=== PATIENT | male | born 1960 | race Caucasian/White ===

== ENCOUNTER → 2018-02-21 12:35 | Outpatient (CLI) | payer OTHER, SELFPAY ==
[2018-02-21 13:39] LABS: Absolute Lymphocyte Count 0.97 X10^3/ul (0.83-4.51); Absolute Neutrophil Count 2.2 X10^3/uL (2.0-7.7); Basophil# 0.03 X10^3/uL; Basophil% 0.8 % (0-1); Eosinophil# 0.03 X10^3/uL; Eosinophils% 0.8 % (0-5); Hematocrit 43.1 % (40-54); Hemoglobin 14.2 g/dl (13.0-16.5); Lymphocyte # 0.97 X10^3/ul (4.0); Mean Corp Hgb Conc 32.9 g/gl (32-36); Mean Corpuscular Hgb 28.2 pg (27.0-32.0); Mean Corpuscular Volume 85.5 fL (80-94); Monocyte# 0.46 X10^3/uL; Monocyte% 12.3 % (0-10); Neutrophil # 2.24 X10^3/uL (2.7-7.7); Neutrophil % 60.1 % (47-70); Platelet Count 109 K/mm3 (150-450); RBC Distribution Width CV 14.6 % (11.6-14.6); RBC Distribution Width SD 45.2 fl (35.1-43.9); Red Blood Count 5.04 M/mm3 (4.6-6.2); White Blood Count 3.7 K/mm3 (4.4-11.0)
[2018-02-21 13:41] LABS: POSITIVE COUNT NO; POSITIVE DIFFERENTIAL NO; POSITIVE MORPHOLOGY NO
[2018-02-21 19:23] LABS: Internal QC Validated? YES +Cl - CLEAR BKGD; Monotest Negative (Negative)
[2018-02-21 19:24] LABS: Record Kit Lot#, Mono 13171517
== END ==
PROVIDERS: Family Provider Family Medicine; PCP Family Medicine; Visit Provider Family Medicine
DX: B34.9 Viral infection, unspecified (principal)
CPT/HCPCS: 36415; 85025; 86308

== ENCOUNTER → 2018-02-27 12:04 | Outpatient (CLI) | payer OTHER, SELFPAY ==
[2018-02-27 14:07] LABS: Absolute Lymphocyte Count 1.11 X10^3/ul (0.83-4.51); Absolute Neutrophil Count 2.9 X10^3/uL (2.0-7.7); Basophil# 0.01 X10^3/uL; Basophil% 0.2 % (0-1); Eosinophil# 0.13 X10^3/uL; Eosinophils% 2.8 % (0-5); Hematocrit 43.1 % (40-54); Hemoglobin 13.8 g/dl (13.0-16.5); Lymphocyte # 1.11 X10^3/ul (4.0); Lymphocyte % 24.3 % (19-41); Mean Corpuscular Hgb 27.5 pg (27.0-32.0); Mean Platelet Vol. 10.2 fl (6.2-12.0); Monocyte# 0.41 X10^3/uL; Neutrophil % 63.5 % (47-70); Platelet Count 192 K/mm3 (150-450); RBC Distribution Width CV 14.1 % (11.6-14.6); RBC Distribution Width SD 44.2 fl (35.1-43.9); Red Blood Count 5.01 M/mm3 (4.6-6.2); White Blood Count 4.6 K/mm3 (4.4-11.0)
[2018-02-27 14:10] LABS: POSITIVE COUNT NO; POSITIVE DIFFERENTIAL NO; POSITIVE MORPHOLOGY NO
== END ==
PROVIDERS: Family Provider Family Medicine; PCP Family Medicine; Visit Provider Family Medicine
DX: B34.9 Viral infection, unspecified (principal)
CPT/HCPCS: 36415; 85025

== ENCOUNTER → 2019-12-18 14:43 | Outpatient (CLI) | payer OTHER, SELFPAY ==
[2019-12-19 07:26] LABS: SARS-COV-2 TOTAL ABS Reactive (Nonreactive)
== END ==
PROVIDERS: PCP Family Medicine; Referring Provider Family Medicine; Visit Provider Family Medicine
DX: R68.89 Other general symptoms and signs (principal)
CPT/HCPCS: 86769; G2023

== ENCOUNTER → 2020-08-05 14:44 | Outpatient (CLI) | payer OTHER, SELFPAY ==
[2020-08-06 09:10] LABS: SARS-COV-2 TOTAL ABS Reactive (Nonreactive)
== END ==
PROVIDERS: PCP Family Medicine; Visit Provider Family Medicine
DX: Z00.00 Encounter for general adult medical examination without abnormal findings (principal); R68.89 Other general symptoms and signs
CPT/HCPCS: 36415; 84153; 86769; G0103

== ENCOUNTER → 2020-09-09 15:52 | Outpatient (CLI) | payer OTHER, SELFPAY ==
--- NOTE | 2020-09-09 11:00 | PROSBIL_PTH ---
PATIENT: MAGDALENA ALLEN LOC: [facility] U#:[id number] AGE/SX: 64/M ROOM: RE09/09/[address]: Dr. Pieter Guthrie MD : 1960 BED: DIS: SPEC #: [id number] RECD: 09/09/20 15:34 STATUS: ROSELINE CESAR #: [id number] TIFFANIE: 09/09/20 11:[address]: Pieter Guthrie DEPT: SURGICAL PATHOLOGY RECD BY: Frannie Mireles ENTERED: 09/10/20 08:46 SP TYPE: PROST BX QUCO DR: Dr. Rosy Spence MD Tissues: A - PROSTATE RIGHT B - PROSTATE RIGHT C - PROSTATE RIGHT D - PROSTATE LEFT E - PROSTATE LEFT F - PROSTATE LEFT Procedures: PROSTATE BX HEADER OPERATION: Prostate biopsy PRE-OP DIAGNOSIS: Elevated PSA TISSUE SUBMITTED: A - Right apex, B - Right mid, C - Right base, D - Left apex, E - Left mid, F - Left base MICROSCOPIC DIAGNOSIS A. Right prostate, apex, core biopsy: Prostatic tissue, negative for malignancy. Focal mild chronic inflammation. B. Right prostate, mid, core biopsy: Prostatic tissue, negative for malignancy. Focal atrophy, mild chronic inflammation and minimal acute inflammation. C. Right prostate, base, core biopsy: Prostatic tissue, negative for malignancy. D. Left prostate, apex, core biopsy: Prostatic tissue, negative for malignancy. E. Left prostate, mid, core biopsy: Prostatic tissue, negative for malignancy. Focal atrophy. F. Left prostate, base, core biopsy: Prostatic tissue, negative for malignancy. SJ:kamini 09/11/2020 MICROSCOPIC DESCRIPTION Slides are reviewed. GROSS DESCRIPTION A - Received is one container designated prostate, right apex. The specimen consists of two elongated fragments of light roberson-white soft tissue each measuring 1 cm in length and 0.1 cm in diameter. The specimen is totally submitted in one cassette. B - Received is one container designated prostate, right mid. The specimen consists of two elongated fragments of light roberson-white soft tissue each measuring 1 cm in length and 0.1 cm in diameter. The specimen is totally submitted in one cassette. C - Received is one container designated prostate, right base. The specimen consists of two elongated fragments of light roberson-white soft tissue each measuring 1.5 cm in length and 0.1 cm in diameter. The specimen is totally submitted in one cassette. D - Received is one container designated prostate, left apex. The specimen consists of two elongated fragments of light roberson-white soft tissue each measuring 1.5 cm in length and 0.1 cm in diameter. The specimen is totally submitted in one cassette. E - Received is one container designated prostate, left mid. The specimen consists of two elongated fragments of light roberson-white soft tissue each measuring 1.2 cm in length and 0.1 cm in diameter. The specimen is totally submitted in one cassette. F - Received is one container designated prostate, left base. The specimen consists of two elongated fragments of light roberson-white soft tissue each measuring 1.4 cm in length and 0.1 cm in diameter. The specimen is totally submitted in one cassette. / SJ:rg 09/10/20 TC:3 CPT: 99616 x6
== END ==
PROVIDERS: PCP Family Medicine; Referring Provider Urology; Visit Provider Urology
DX: R97.20 Elevated prostate specific antigen [PSA] (principal)
CPT/HCPCS: 88305; G0416

== ENCOUNTER → 2022-09-13 | Outpatient (CLI) | payer OTHER, SELFPAY ==
--- NOTE | 2022-09-13 12:20 | RAD_ITS ---
INDICATION: PAIN EXAMINATION/TECHNIQUE: X-RAY - RIGHT XR Knee Complete 4 Views or More 4 VIEWS COMPARISON: None. FINDINGS: SOFT TISSUES: No soft tissue swelling or gas. No radiopaque foreign body. BONES/JOINTS: No acute fracture or subluxation.. Normal alignment. Preservation of the joint space.. No sclerotic or destructive changes observed. RAD/Knee 4 or More Views IMPRESSION: Within normal limits examination. Electronically Signed: Cathy Holden MD at 14:17 EST ,
[2022-09-13 15:20] LABS: Microalbumin,Random Urine 33.3 mg/L (NO RANGE EST.); Microalbumin:Creatinine Ratio 11.6 mg/g CRE (<30 mg/g CRE)
[2022-09-13 15:43] LABS: Anion Gap 6 (5-15); BUN 17 mg/dL (7-18); BUN/Creat Ratio 15.7 RATIO (10-20); Calcium,Total 9.1 mg/dL (8.5-10.1); Chloride 106 mmol/L (98-107); Cholesterol 196 mg/dL (200); Creatinine, Serum 1.08 mg/dL (0.70-1.30); EST Glomerular Filtration Rate 74 mL/min (>60); Est Glom Filt Rate - Afr Amer 89 mL/min (>60); Glucose 97 mg/dL (74-106); High Density Lipoprotein 52 mg/dL; PSA,Total - Annual Screen 9.36 ng/mL (0.00-4.00); Potassium 4.2 mmol/L (3.5-5.1); Sodium Level 140 mmol/L (136-145); Triglycerides 143 mg/dL; Very Low Density Lipoprotein 29 mg/dL (5-40)
== END | disposition home or self-care (01) ==
PROVIDERS: PCP Family Medicine; Visit Provider Family Medicine
DX: Z00.00 Encounter for general adult medical examination without abnormal findings (principal); I10 Essential (primary) hypertension; Z82.49 Family history of ischemic heart disease and other diseases of the circulatory system; M25.561 Pain in right knee
CPT/HCPCS: 36415; 73564; 80048; 80061; 82043; 82570; 84153; G0103

== ENCOUNTER 2022-10-20 10:00 | Outpatient (RCR) | payer OTHER, SELFPAY ==
--- NOTE | 2022-10-12 09:02 | HP.PTEVAL ---
Patient's Visit Information MAGDALENA ALLEN is a 61 year old M referred to Physical Therapy by Rosy Spence MD with a diagnosis of IT band syndrome. Date of Evaluation: 09/16/22 Physical Therapist: Dick Brice DPT - Visit Plan Frequency: 2x /Week Duration: 6 Weeks Plan: Cont per POC. - Subjective Pt. is here today for his initial evaluation with diagnosis of IT band tightness of R knee. Pt. reports having some R knee pain, but is mostly having pain on the medial aspect of his R knee now. Pt. 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 He reports having increased pain with walking, but does feel like it is getting better. He is an avid runner but has been able to run recently due to his pain. He has increased pain with squatting, stairs, running, and twisting. He has some relief with rest and sitting. He reports that his lateral knee pain is mostly gone, and it is only medial knee pain now. Pt. is sleeping okay. He is still able to bike and do elliptical without much issues. Pt. is hopeful to get back to all recreational activities without limitations. - Pain Medial R knee Pain Intensity (Out of 10): 2 Pain Intensity Range: 1, 6 Comment: medial knee - Objective POSTURE: pt. has normal posture in stance. No major R knee valgus or varus. No marked wt. shift off his RLE. PALPATION: Pt. has mild tenderness at proximal IT band, but no pain at distal end. No lateral knee joint line pain. Pt. does have more medial joint line pain. NEURO: Pt. has normal sensation and normal DTR of BLEs. Pt. has no issues with heel/toe raises. ROM: Pt. has good ROM of B hips and B knees. He has some tightness in B IT bands and hip ER. He does have some mild increase in symptoms with end range flexion and extension of R knee, at his medial joint line. MMT: LLE: 5/5 throughout. RLE: ankle 5/5 throughout; knee: ext 5-/5 mild increase NW, flexion 5-/5 mild increase NW. Hip: flexion 5/5, abd 5-/5, ext 5-/5. Core strength- fair+. GAIT: pt. has fairly normal gait pattern without increase in symptoms. With increased stride length he had increased pain at medial joint line during initial contact. - Special Tests R Hip Scout - IT Band: Negative Comment: IT band tightness, no pain with testing R Knee Merry - Meniscus: Positive R Knee Disco Test - Meniscus: Positive R Knee Anterior Drawer - ACL: Negative R Knee Posterior Drawer - PCL: Negative R Knee Valgus - MCL: Negative R Knee Varus - LCL: Negative - Goals Goal 1:: LTG: Pt. to be I with HEP. Goal Time Frame: 4-6 Weeks Goal 2:: STG: pt. to be able to walk without increase in symptoms. Goal Time Frame: 2-4 Weeks Goal 3:: LTG: Pt. to have full ROM without increase in symptoms. Goal Time Frame: 4-6 Weeks Goal 4:: LTG: pt. to be able to run without issues. Goal Time Frame: 4-6 Weeks Goal 5:: LTG: Pt. to be able to negotiate 2 flights of stairs without increase in symptoms. Goal Time Frame: 4-6 Weeks - Rehabilitation Potential Physical Therapy Diagnosis: Pt. has signs and symptoms consistent with R knee pain. Pt. has some special testing and his mech of injury including causes, suggests possible meniscal pathology. Pt. would benefit from PT to work on increasing his strength in his stability of his R knee Rehabilitation Potential: Good - Anticipated Interventions Patient/Client Instruction: Educate patient on: Condition, Plan of Care, Risk Factors, Benefits of Fitness Program For the Purpose of:: To decrease pain, To foster healthy habits, To improve decision making, To facilitate caregiver knowledge, To improve self management, To prevent re-injury, To improve ability to perform tasks related to life management Therapeutic Exercise to Include: Strength training, Balance training, Coordination, Postural training, Flexibilty training, Gait and locomotor training, Passive ROM, Active ROM For the Purpose of:: To decrease pain, To increase ROM, To improve nutrient delivery to tissue, To increase oxygenation perfusion, To improve gait and locomotor functions, To improve health of tissue, To decrease soft tissue restriction, To increase flexibility/ROM Thank you for the opportunity to evaluate your patient. For Medicare and Medicare HMO plans, please review the plan of care and approve it. It will need to be FAXED BACK to us at [phone] for Medicare purposes. For Medicare only, by signing this I certify the plan of care. Please let me know if there are questions or concerns regarding this plan of care. Physician Signature: Date:
--- NOTE | 2022-10-20 19:14 | HP.PTREVAL ---
Rosy Spence MD, It has been my pleasure to treat MAGDALENA ALLEN over the last 6 visits for IT band syndrome. Please see the progress note below for an update on the physical therapy plan of care! Subjective: Pt. reports feeling much better, he is having some achillies soreness, but his knee is feeling better. He plans on being done with PT this date and progressing on his own at this point in time. pt. reports being 75% better overall. Objective/Function: Pt. has full strength of LE without increase in symptoms. Pt. has good ROM. GAIT: pt. has no pain with walking. He does have oms pain with attempting to run. Posterior medial aspect of knee. stairs: mild pain with descending with use of no HR. Pt. has what looks like achillies tendinosis. I gave him some stretching and eccentric exercises to work on. He is to slowly increase his strengthening exercises and stability exercises for his knee. Pt. consents. Plan Plan: Pt. to be DC to HEP and back to physician as needed. Balance/Gait/Functional tests - Balance/Special Test Scores Lower Extremity Functional Score: 68 Goals Goal 1:: LTG: Pt. to be I with HEP. Goal Time Frame: 4-6 Weeks Goal Progress: Goal Met Goal 2:: STG: pt. to be able to walk without increase in symptoms. Goal Time Frame: 2-4 Weeks Goal Progress: Goal Met Goal 3:: LTG: Pt. to have full ROM without increase in symptoms. Goal Time Frame: 4-6 Weeks Goal Progress: Goal Met Goal 4:: LTG: pt. to be able to run without issues. Goal Time Frame: 4-6 Weeks Goal Progress: Progressing Goal 5:: LTG: Pt. to be able to negotiate 2 flights of stairs without increase in symptoms. Goal Time Frame: 4-6 Weeks Goal Progress: Progressing Anticipated Interventions Patient/Client Instruction: Educate patient on: Condition, Plan of Care, Risk Factors, Benefits of Fitness Program For the Purpose of:: To decrease pain, To foster healthy habits, To improve decision making, To facilitate caregiver knowledge, To improve self management, To prevent re-injury, To improve ability to perform tasks related to life management Therapeutic Exercise to Include: Strength training, Balance training, Coordination, Postural training, Flexibilty training, Gait and locomotor training, Passive ROM, Active ROM For the Purpose of:: To decrease pain, To increase ROM, To improve nutrient delivery to tissue, To increase oxygenation perfusion, To improve gait and locomotor functions, To improve health of tissue, To decrease soft tissue restriction, To increase flexibility/ROM Please do not hesitate to contact me at [phone] by phone or if you have questions or concerns regarding this new plan of care! Sincerely, KAREN LalaT
== END 2022-10-20 19:00 | disposition home or self-care (01) ==
LOC: PT 10:00
PROVIDERS: PCP Family Medicine; Referring Provider Family Medicine; Visit Provider Family Medicine
DX: M76.31 Iliotibial band syndrome, right leg (principal)
CPT/HCPCS: 97110; 97161; 97164

== ENCOUNTER → 2024-10-09 | Outpatient (CLI) | payer BC, SELFPAY ==
[2024-10-09 17:22] LABS: Anion Gap 11 (5-15); BUN 18 mg/dL (4-19); BUN/Creat Ratio 16.7 RATIO (10-20); Calcium,Total 9.3 mg/dL (7.6-11.0); Carbon Dioxide 24.6 mmol/L (21.0-32.0); Chloride 107 mmol/L (98-108); Cholesterol 172 mg/dL (<=200); Creatinine, Serum 1.08 mg/dL (0.70-1.20); EST Glomerular Filtration Rate 77 (>60); Glucose 88 mg/dL (70-99); High Density Lipoprotein 64 mg/dL; Low Density Lipoprotein Calc. 93 mg/dL; Potassium 4.6 mmol/L (3.3-5.1); Sodium Level 142 mmol/L (133-145); Triglycerides 77 mg/dL; Very Low Density Lipoprotein 15 mg/dL (5-40)
[2024-10-09 17:28] LABS: Protein, Urine (Random) 18.7 mg/dL (0.0-12.0); Protein:Creat Ratio 55 mg/g CRE (0-200)
== END | disposition home or self-care (01) ==
PROVIDERS: PCP Family Medicine; Referring Provider Family Medicine; Visit Provider Family Medicine
DX: Z12.5 Encounter for screening for malignant neoplasm of prostate (principal); I10 Essential (primary) hypertension
CPT/HCPCS: 36415; 80048; 80061; 82570; 84153; 84156; G0103